=== PATIENT | female | born 1980 | race Caucasian/White ===

== ENCOUNTER → 2019-05-10 | Emergency (ER) | payer BC, MEDICAID ==
[~2019-05-10] MED LIST: IBU800 PO; NS(*) 0.9% 1000 ML BAG 1,000 ML IV ONE
--- NOTE | 2019-05-10 05:14 | ER Report ---
History and Physical Time Seen By MD: 05:11 HPI/ROS Patient decided not to seek care. She passed her kidney stone in the bathroom and her pain resolved. Allergies: Coded Allergies: No Known Drug Allergies (Verified , 05/24/11) Home Meds Reported Medications Ibuprofen (Motrin) 800 Mg Tab, 800 MG PO Q8H PRN, 0 Refills BE SURE TO TAKE WITH FOOD TO AVOID STOMACH 05/25/11 Reviewed Nurses Notes: Yes Old Medical Records Reviewed: Yes Medical Decision Making Data Points Laboratory Hematology Test 05/10/19 05:14 Chemistry Test 05/10/19 05:14 Urinalysis Test 05/10/19 05:14 ED Course/Re-evaluation ED Course Patient decided not to be seen. She passed her kidney stone in the bathroom obtaining a urine specimen and decided to leave and go home and follow up with her primary care doctor. Decision to Disposition Date: May 10, 2019 Decision to Disposition Time: 05:19 Depart Departure Impression: Primary Impression: Hematuria Additional Impression: Kidney stone Condition: Improved Disposition: HOME OR SELF-CARE Referrals: MALIK VELÁZQUEZ CNM (PCP) Problem Qualifiers Primary Impression: Hematuria Hematuria type: unspecified type Qualified Codes: R31.9 - Hematuria, unspecified CHRISTI MARKHAM DO May 10, 2019 05:14
== END ==
LOC: ER 05:22
DX: R31.9 Hematuria, unspecified (principal); N20.0 Calculus of kidney
CPT/HCPCS: 81001